=== PATIENT | female | born 1960 | race Caucasian/White ===

== ENCOUNTER 2021-06-26 15:12 | Emergency (ER) | payer BC, SELFPAY ==
--- NOTE | ~2021-06-26 | XR_ITS ---
EXAMINATION: [id number] DATE: 06/26/2021 15:47 INDICATION: Left chest pain. TECHNIQUE: A frontal view of the chest and 2 views of the left ribs on 3 radiographs were obtained. COMPARISON: Chest 2 views 10/10/2011 FINDINGS: There is mild atelectasis at left lung base. No pleural effusion or pneumothorax. The heart size is normal. There is a total left shoulder arthroplasty. IMPRESSION: 1. No rib fracture. 2. Mild atelectasis at left lung base. Reviewed, dictated and finalized at location A.
[2021-06-26 15:28] VITALS: BP 123/66; PULSE 78; RESP 18; TEMP 36.7; O2SAT 99
--- NOTE | 2021-06-26 16:02 | ED.FALL ---
HPI - Fall General Chief Complaint: Fall Stated Complaint: Rib Pain Time Seen by Provider: 06/26/21 15:51 Source: patient and RN notes reviewed Mode of arrival: ambulatory Limitations: no limitations History of Present Illness HPI Narrative: Patient presents today complaining of left rib pain. Yesterday, she caught her toe on a curb and fell onto her left ribs onto a sidewalk. She came in today to have her ribs evaluated. She currently rates her pain 7/10 and has been taking her home Percocet for pain. Pain increases with deep breath and movement. complaint: fall and other (Left rib pain) Related Data Home Medications Medication Instructions Recorded Confirmed amlodipine 10 mg PO DAILY 06/26/21 06/26/21 aripiprazole 5 mg PO DAILY 06/26/21 06/26/21 atorvastatin 20 mg PO DAILY 06/26/21 06/26/21 bupropion HCl 150 mg PO DAILY 06/26/21 06/26/21 cyclobenzaprine 10 mg PO TID PRN 06/26/21 06/26/21 diazepam 5 mg PO DAILY PRN 06/26/21 06/26/21 gabapentin 200 mg PO HS 06/26/21 06/26/21 levothyroxine 100 mcg PO DAILY 06/26/21 06/26/21 meloxicam 15 mg PO BID 06/26/21 06/26/21 metoprolol succinate 100 mg PO DAILY 06/26/21 06/26/21 oxycodone-acetaminophen 1 tablet PO Q4H PRN 06/26/21 06/26/21 zolpidem 10 mg PO HS PRN 06/26/21 06/26/21 Allergies Allergy/AdvReac Type Severity Reaction Status Date / Time ketorolac Allergy Mild Unknown Verified 06/26/21 15:52 Penicillins Allergy Mild Unknown Verified 06/26/21 15:52 prochlorperazine Allergy Mild Unknown Verified 06/26/21 15:52 Review of Systems Review of Systems: CONSTITUTIONAL: Denies body aches, fever, chills, or sweats. EYES: Denies visual changes, redness, or discharge. ENT: Denies rhinorrhea, congestion, sore throat, or otalgia. CARDIOVASCULAR: Denies chest pain, palpitations, or edema. RESPIRATORY: Denies cough or dyspnea. GASTROINTESTINAL: Denies abdominal pain, nausea, vomiting, or diarrhea. GENITOURINARY: Denies dysuria or hematuria. SKIN: Denies rash, itching, or wounds. MUSCULOSKELETAL: Denies back pain, joint pain, or myalgia.+ Left rib pain NEUROLOGIC: Denies headache, numbness, tingling, or weakness. PSYCH: Denies depression or anxiety. [facility] Past Medical History Medical History (Updated 06/26/21 @ 16:11 by Sona Carbajal, AUT[employer]OTIVE [employer], ) Anxiety Depression High cholesterol Hypertension Hypothyroidism Comments At time of signature, I have reviewed and agree with nursing past medical, surgical, social and family history unless otherwise noted. Please see nursing chart for further information. There is no relevant family history pertinent to the presenting complaint Exam Narrative: GENERAL: Well-appearing, well-nourished, and in no acute distress. HEAD: Normocephalic, atraumatic. EYES: EOMI. No redness or drainage. ENT: Mucous membranes pink and moist. NECK: Normal AROM. CHEST: No respiratory distress. Clear to auscultation. Left posterior lateral rib tenderness without crepitus, edema, step-off noted. No ecchymosis noted. HEART: Regular rate and rhythm. No murmur appreciated. Normal peripheral pulses. MUSCULOSKELETAL: No bony tenderness. EXTREMITIES: Normal range of motion. No edema. SKIN: Warm, dry, no rash. Capillary refill normal. Normal skin turgor. NEURO: No focal deficits. Alert and oriented x3. Gait steady. PSYCH: Normal affect. No signs of depression or anxiety. Course Vital Signs Vital signs: Vital Signs Temperature 98.0 F 06/26/21 15:28 Pulse Rate 78 06/26/21 15:28 Respiratory Rate 18 06/26/21 15:28 Blood Pressure 123/66 06/26/21 15:28 Pulse Oximetry 99 06/26/21 15:28 Temperature 98.0 F 06/26/21 15:28 Pulse Rate 78 06/26/21 15:28 Respiratory Rate 18 06/26/21 15:28 Blood Pressure 123/66 06/26/21 15:28 Pulse Oximetry 99 06/26/21 15:28 Reviewed. Pt has been instructed to follow up with her PCP regarding her elevated blood pressure today. MDM - Fall Differential Diagnosis Differential diagno
== END 2021-06-26 16:28 | disposition home or self-care (01) ==
PROVIDERS: Emergency Provider Nurse Practitioner; PCP Family Medicine
DX: S20.212A Contusion of left front wall of thorax, initial encounter (principal); W18.09XA Striking against other object with subsequent fall, initial encounter; E78.00 Pure hypercholesterolemia, unspecified; I10 Essential (primary) hypertension; E03.9 Hypothyroidism, unspecified; F41.9 Anxiety disorder, unspecified; F32.9 Major depressive disorder, single episode, unspecified
CPT/HCPCS: 71101; 99213; G0463

== ENCOUNTER 2023-05-20 10:57 | Outpatient (CLI) | payer BC, SELFPAY ==
--- NOTE | 2023-05-20 11:38 | ECG_ITS ---
Measurements Intervals Rebuck Rate: 79 P: 63 IA: 142 QRS: 16 QRSD: 100 T: 17 QT: 379 QTc: 436 Interpretive Statements SINUS RHYTHM VOLTAGE CRITERIA FOR LVH BORDERLINE ECG NO PREVIOUS ECG AVAILABLE FOR COMPARISON Electronically Signed On 05-20-2023 15:47:29 CDT by Eugenio Womack D.O.
== END 2023-05-20 10:58 | disposition home or self-care (01) ==
PROVIDERS: PCP Family Medicine; Visit Provider Anesthesiology
DX: E78.5 Hyperlipidemia, unspecified (principal); Z01.818 Encounter for other preprocedural examination; R94.31 Abnormal electrocardiogram [ECG] [EKG]
CPT/HCPCS: 93005

== ENCOUNTER 2023-05-26 00:27 | Day surgery (SDC) | payer BC, SELFPAY ==
--- NOTE | 2023-05-17 14:30 | PC.NURSE ---
Report to the Outpatient Waiting Room, entrance under the green pavilion located off [facility], at time _0930__ on datE 05/26/23_. Planned Procedure Time: _1130_. Time changes happen often and if your time is changed the preop area will call you the afternoon before. - You and your visitor will be asked to self-screen and do not enter if you have any COVID symptoms. - A mask is optional within the hospital at this time. Patients may have clear liquids (water, carbonated beverages, clear teas, apple juice) until 3 hours prior to surgery with a maximum of 20 ounces. - No food from midnight until time of surgery - Infants may have breast milk until 4 hours before surgery, infant formula 6 hours prior to surgery. - Children will be allowed to drink immediately following surgery. If applicable, please bring a bottle or sippy cup to assist with drinking. Juice, water, soda, and popsicles are readily available. For infants on formula, please bring formula the day of surgery. Pacifiers are allowed. Take the following medications with a SIP of water the morning of surgery: LEVOTHYROXINE DO NOT STOP ANY OF YOUR OTHER PRESCRIPTION MEDICATIONS PRIOR TO SURGERY ?EXCEPT THE FOLLOWING Medications to discontinue per physician NONE Date to take last dose Please no make-up, nail gambian, hairspray, perfume, deodorant, or body powder the day of surgery. No jewelry (including any body piercings) or valuables the day of surgery, leave them at home. Please take a shower or bath the night before, or the morning of, surgery with an antibacterial soap. Wear comfortable, loose fitting clothing. Children are encouraged to wear pajamas. - Jewelry must be removed prior to entering the operating room. Rings and piercings that are not removed may be cut off. - The hospital will not accept responsibility for valuables. - Please leave all valuables, including medications, at home the day of surgery. If you are going home after surgery, a licensed refuse driver must drive you home. - NO public transportation without another adult if you receive anesthesia. - We recommend that an adult stay with you for 24 hours following discharge. - We also recommend that you do not drive, make important decision, drink alcoholic beverages, or take any drugs that were not prescribed by your health care provider for at least 24 hours after your discharge time. For Pediatric surgeries, we recommend two adults accompany the child home. Follow any additional instructions given to you from your surgeon. If you or anyone in your household have experienced Covid symptoms in the past week, please notify your surgeon or the nurse liaison at the phone number below for possible testing. Telephone instructions given to _PATIENT__and asked if any additional questions and then verbalized understanding. Patient advised to call surgeon office or pre surgery nurse liaison [phone] if any additional questions.
[2023-05-17 14:37] VITALS: BMI 35.4
--- NOTE | 2023-05-25 12:47 | WPDANESEPPF ---
Anes - Initial Pre Proc Eval Procedure: Operation Date: 05/26/23 11:30 Proposed Procedures p Bilateral Myringotomy, Insertion Of T-Tubes - Andrews Roth MD s Bilateral Eustachian Tube Balloon Dilation - Andrews Roth MD Date/Time: 05/25/23 12:47 Surgeon: Andrews Roth MD Pre Op Diagnosis: bilateral chronic OM Patient Data Age: 63 Gender: F Height: 1.75 m Weight: 109 kg Allergies Allergy/AdvReac Type Severity Reaction Status Date / Time ketorolac Allergy Mild Hives Verified 05/26/23 09:40 Penicillins Allergy Mild Hives Verified 05/26/23 09:40 Home Medications Medication Instructions Recorded Confirmed Type aripiprazole 5 mg tablet 5 mg PO HS 06/26/21 05/26/23 History atorvastatin 20 mg tablet 20 mg PO HS 06/26/21 05/26/23 History diazepam 5 mg tablet 5 mg PO DAILY PRN Anxiety 06/26/21 05/26/23 History levothyroxine 100 mcg tablet 100 mcg PO DAILY 06/26/21 05/26/23 History oxycodone-acetaminophen 7.5 mg-325 1 tablet PO Q5H PRN Pain 06/26/21 05/26/23 History mg tablet amlodipine 5 mg tablet 5 mg PO HS 05/02/23 05/26/23 History bupropion HCl 300 mg 24 hr tablet, 300 mg PO HS 05/02/23 05/26/23 History extended release zolpidem 6.25 mg tablet,extended 12.5 mg PO HS 05/17/23 05/26/23 History release,multiphase Patient hx anesthesia problems: none Family hx anesthesia problems: none Results Review: All pre-operative results and documents have been reviewed as part of the pre-operative evaluation. [facility] Past Medical History Medical History (Updated 05/25/23 @ 12:48 by Mariano Petit MD) Anxiety Depression High cholesterol Hypertension Hypothyroidism Obesity Family History Family History Grandparent Alcoholism Breast cancer Sibling Alcoholism Depression Mother Breast cancer Hypertension Thyroid disorder Father Hypertension Heart disease Social History Social History Smoking status: Never smoker Alcohol intake: former Alcohol use details: LAST USE 10 YEARS AGO Lack of Transportation: No Lack of Food: Never True Current Housing: I Have Housing Concerned About Future Housing: No Difficulty Paying Gas/Electric Bills: No Difficulty Paying for Meds: No Currently Unemployed: No Education: Master's Degree or Higher Difficulty w/ Childcare or Family Care: No Living arrangements: with family Jony - Nan Final PreProcedure Day of Procedure 05/25/23 12:47 Patient weight: obese Heart: regular rate and rhythm Lungs: clear to auscultation and normal air movement Airway: Mallampati scale class II Neurological: alert and oriented Last oral intake: >/= 8 hours ASA classification: III Emergent: no Anesthetic plan: proceed Anesthesia type and monitoring: general GIVS and LMA Results Review: All pre-operative results and documents have been reviewed as part of the pre-operative evaluation. Informed Consent: The patient's anesthetic plan and its attendant risks and benefits were discussed with the patient/family/POA. Questions were solicited and answers provided to the satisfaction of the patient/family/POA.
--- NOTE | 2023-05-25 17:45 | P.HP_ITS ---
H&P: HPI History of Present Illness Date/Time: 05/25/23 17:45 Chief Complaint: recurrent otitis media hearing loss Narrative: planned procedure Review of Systems Review of Systems: All systems reviewed & are unremarkable except as noted in HPI and below [facility] Past Medical History Medical History (Updated 05/25/23 @ 12:48 by Mariano Petit MD) Anxiety Depression High cholesterol Hypertension Hypothyroidism Obesity Family History Family History Grandparent Alcoholism Breast cancer Sibling Alcoholism Depression Mother Breast cancer Hypertension Thyroid disorder Father Hypertension Heart disease Social History Social History Smoking status: Never smoker Alcohol intake: former Alcohol use details: LAST USE 10 YEARS AGO Lack of Transportation: No Lack of Food: Never True Current Housing: I Have Housing Concerned About Future Housing: No Difficulty Paying Gas/Electric Bills: No Difficulty Paying for Meds: No Currently Unemployed: No Education: Master's Degree or Higher Difficulty w/ Childcare or Family Care: No Living arrangements: with family Meds Home Medications and Allergies Home Medications Medication Instructions Recorded Confirmed Type aripiprazole 5 mg tablet 5 mg PO HS 06/26/21 05/17/23 History atorvastatin 20 mg tablet 20 mg PO HS 06/26/21 05/17/23 History diazepam 5 mg tablet 5 mg PO DAILY PRN Anxiety 06/26/21 05/17/23 History levothyroxine 100 mcg tablet 100 mcg PO DAILY 06/26/21 05/17/23 History oxycodone-acetaminophen 7.5 mg-325 1 tablet PO Q5H PRN Pain 06/26/21 05/17/23 History mg tablet amlodipine 5 mg tablet 5 mg PO HS 05/02/23 05/17/23 History bupropion HCl 300 mg 24 hr tablet, 300 mg PO HS 05/02/23 05/17/23 History extended release zolpidem 6.25 mg tablet,extended 6.25 mg PO HS 05/17/23 05/17/23 History release,multiphase Allergies Allergy/AdvReac Type Severity Reaction Status Date / Time ketorolac Allergy Mild Hives Verified 05/17/23 14:36 Penicillins Allergy Mild Hives Verified 05/17/23 14:36 Exam Narrative: fluid bilaterally Assessment and Plan Assessment and plan (1) Chronic otitis media with effusion, bilateral: Code(s): H65.493 - Other chronic nonsuppurative otitis media, bilateral Status: Acute Assessment and Plan: plan 0 bilateral myringotomy with T-tube insertion. Risks were discussed including bleeding infection damage to surrounding structures damage to any structure above the clavicles by myself. Damage to any structure of LMA placed by Anesthesia. Cholesteatoma formation persistent perforation need for replacement of tubes need for repeat tubes facial nerve paralysis total deafness failure to resolve symptoms. Patient voiced understanding of these risks and agreed.
[2023-05-26] VITALS (8 sets, daily range): BP systolic 110–155; BP diastolic 57–94; PULSE 67–77; RESP 12–20; TEMP 36.3–36.4; O2SAT 94–98
--- NOTE | 2023-05-26 07:36 | WPDHPUPDATE1 ---
History and Physical Update Update Date/Time: 05/26/23 07:36 History and Physical has been reviewed, including an updated exam of the patient. There are NO changes in the patient's condition. Risks, benefits, and alternatives have been discussed and questions answered. Patient agrees to proceed with procedure.
[2023-05-26] MEDS: LACTATED RINGERS 1,000 ML 30 ML IV CONT (09:56)
--- NOTE | 2023-05-26 09:58 | SUR.PREOP ---
pt informed delay in procedure
--- NOTE | 2023-05-26 12:45 | W.PM.PROC2 ---
Procedure Note - Detailed Date of Procedure 05/26/23 Pre-op Diagnosis bilateral chronic OM Post-op Diagnosis Same Procedure Performed Bilateral myringotomy T-tube insertion Surgeon Andrews Roth MD Anesthesia General Indications see above Findings serous effusion bilaterally Description of Procedure patient identified consent verified preop. Patient broughtOperating. Time-out performed. General anesthesia induced mask ventilation maintained. Patient prepped draped positioned procedure confirm 2nd time-out performed. [place] microscope utilized right-sided viewed myringotomy made fluid suctioned out 5 Faroese suction. T-Tube placed drops placed exact same procedure performed on the left side with the exact same findings. Blood loss 0 cc. No complications I performed all dictated portions the procedure care the patient given Anesthesiology patient taken to PACU. Drains No Packing No Pathology None sent Complications No immediate complications Condition Stable Disposition PACU [facility] Billing Surgery - Charge Forward: Surgery Billing
[2023-05-26] MEDS: fentaNYL CITRATE INJ (*CRX) 100 MCG/2 ML VIAL 25 MCG IV PUSH ×6 (12:57→13:24)
[2023-05-26] MEDS: oxyCODONE HCL (*CRX) 5 MG TAB IR PO (13:42)
== END 2023-05-26 14:36 | disposition home or self-care (01) ==
PROVIDERS: PCP Family Medicine; Visit Provider Otolaryngology
PROC: (CPT 69436; principal; 2023-05-26 11:30)
DX: H65.493 Other chronic nonsuppurative otitis media, bilateral (principal); I10 Essential (primary) hypertension; E78.00 Pure hypercholesterolemia, unspecified; E03.9 Hypothyroidism, unspecified; F41.9 Anxiety disorder, unspecified; F32.A Depression, unspecified; E66.9 Obesity, unspecified; Z68.35 Body mass index [BMI] 35.0-35.9, adult
CPT/HCPCS: 69436; A9270; J2704; J3010; J7120

== ENCOUNTER 2024-05-07 00:30 | Day surgery (SDC) | payer BC, SELFPAY ==
[2024-04-24 10:23] VITALS: BMI 29.2
[2024-05-07 12:20] VITALS: BP 142/85; PULSE 75; RESP 18; TEMP 36.2; O2SAT 100; BMI 30.7
[2024-05-07] MEDS: LACTATED RINGERS 1,000 ML 150 ML IV CONT (12:47)
--- NOTE | 2024-05-07 13:27 | SUR.PREOP ---
1300 Patient and family updated to procedure delay- denies any needs at this time.
--- NOTE | 2024-05-07 14:04 | WPDANESEPPF ---
Anes - Initial Pre Proc Eval Procedure: Operation Date: 05/07/24 13:30 Proposed Procedures p Esophagogastroduodenoscopy - Luis Felipe Arreola MD Date/Time: 05/07/24 14:04 Surgeon: Luis Felipe Arreola MD Pre Op Diagnosis: GERD without esophagitis, Dyskinesia of esophagus Patient Data Age: 64 Gender: F Height: 1.75 m Weight: 94.4 kg Last Vital Signs Temp 36.2 C L 05/07/24 12:20 Pulse 75 05/07/24 12:20 Resp 18 05/07/24 12:20 BP 142/85 H 05/07/24 12:20 Pulse Ox 100 05/07/24 12:20 O2 Del Method Room Air 05/07/24 12:20 Allergies Allergy/AdvReac Type Severity Reaction Status Date / Time ketorolac Allergy Mild Hives Verified 05/07/24 12:28 Penicillins Allergy Mild Hives Verified 05/07/24 12:28 Home Medications Medication Instructions Recorded Confirmed Type aripiprazole 5 mg tablet 5 mg PO HS 06/26/21 05/07/24 History atorvastatin 20 mg tablet 20 mg PO HS 06/26/21 05/07/24 History diazepam 5 mg tablet 5 mg PO DAILY PRN Anxiety 06/26/21 05/07/24 History levothyroxine 100 mcg tablet 100 mcg PO DAILY 06/26/21 05/07/24 History amlodipine 5 mg tablet 5 mg PO HS 05/02/23 05/07/24 History omeprazole 40 mg capsule,delayed 40 mg PO DAILY #30 caps 08/22/23 05/07/24 Rx release gabapentin 400 mg tablet 400 mg PO TID 04/24/24 05/07/24 History oxycodone-acetaminophen 7.5 mg-325 1 tablet PO QID PRN Pain 04/24/24 05/07/24 History mg tablet semaglutide (weight loss) 2.4 2.4 mg subcut WEEKLY 04/24/24 05/07/24 History mg/0.75 mL subcutaneous pen injector (Wegovy) Patient hx anesthesia problems: none Family hx anesthesia problems: none Results Review: All pre-operative results and documents have been reviewed as part of the pre-operative evaluation. [facility] Past Medical History Medical History Anxiety Depression High cholesterol Hypertension Hypothyroidism Obesity Surgical History Surgical History History of total shoulder replacement Family History Family History Grandparent Alcoholism Breast cancer Sibling Alcoholism Depression Mother Breast cancer Hypertension Thyroid disorder Father Hypertension Heart disease Social History Social History Smoking status: Never smoker Alcohol intake: former Alcohol use details: LAST USE 10 YEARS AGO Lack of Transportation: No Lack of Food: Never True Current Housing: I Have Housing Concerned About Future Housing: No Difficulty Paying Gas/Electric Bills: No Difficulty Paying for Meds: No Currently Unemployed: No Education: Bachelor's Degree Difficulty w/ Childcare or Family Care: No Living arrangements: with family Spiritual care concerns: No Anes - Eval Final PreProcedure Day of Procedure 05/07/24 14:04 Patient weight: obese Heart: regular rate and rhythm Lungs: clear to auscultation Airway: Mallampati scale class III Neurological: alert and oriented Last oral intake: >/= 8 hours ASA classification: II Emergent: no Anesthetic plan: proceed Anesthesia type and monitoring: general GIVS and standard monitoring Results Review: All pre-operative results and documents have been reviewed as part of the pre-operative evaluation. Informed Consent: The patient's anesthetic plan and its attendant risks and benefits were discussed with the patient/family/POA. Questions were solicited and answers provided to the satisfaction of the patient/family/POA.
--- NOTE | 2024-05-07 14:53 | PM.HPGS ---
History of Present Illness History of Present Illness Consent: Risks, benefits, and alternatives have been discussed and questions answered. Patient agrees to proceed with procedure. Chief complaint: GERD without esophagitis, Dyskinesia of esophagus Narrative: Gricelda Lynn is a 64 year old female here for first egd, had throat pain ever since she had general anesthesia with intubation for her shoulder replacement and this has been over 8 months in duration. She has been seeing ENT Review of Systems Review of Systems: All systems reviewed & are unremarkable except as noted in HPI and below [facility] Past Medical History Medical History (Updated 05/07/24 @ 14:53 by Luis Felipe Arreola MD) Anxiety Depression High cholesterol Hypertension Hypothyroidism Obesity Sore throat Surgical History Surgical History History of total shoulder replacement Family History Family History Grandparent Alcoholism Breast cancer Sibling Alcoholism Depression Mother Breast cancer Hypertension Thyroid disorder Father Hypertension Heart disease Social History Social History Smoking status: Never smoker Alcohol intake: former Alcohol use details: LAST USE 10 YEARS AGO Lack of Transportation: No Lack of Food: Never True Current Housing: I Have Housing Concerned About Future Housing: No Difficulty Paying Gas/Electric Bills: No Difficulty Paying for Meds: No Currently Unemployed: No Education: Bachelor's Degree Difficulty w/ Childcare or Family Care: No Living arrangements: with family Spiritual care concerns: No Meds Home Medications and Allergies Home Medications Medication Instructions Recorded Confirmed Type aripiprazole 5 mg tablet 5 mg PO HS 06/26/21 05/07/24 History atorvastatin 20 mg tablet 20 mg PO HS 06/26/21 05/07/24 History diazepam 5 mg tablet 5 mg PO DAILY PRN Anxiety 06/26/21 05/07/24 History levothyroxine 100 mcg tablet 100 mcg PO DAILY 06/26/21 05/07/24 History amlodipine 5 mg tablet 5 mg PO HS 05/02/23 05/07/24 History omeprazole 40 mg capsule,delayed 40 mg PO DAILY #30 caps 08/22/23 05/07/24 Rx release gabapentin 400 mg tablet 400 mg PO TID 04/24/24 05/07/24 History oxycodone-acetaminophen 7.5 mg-325 1 tablet PO QID PRN Pain 04/24/24 05/07/24 History mg tablet semaglutide (weight loss) 2.4 2.4 mg subcut WEEKLY 04/24/24 05/07/24 History mg/0.75 mL subcutaneous pen injector (Wegovy) Allergies Allergy/AdvReac Type Severity Reaction Status Date / Time ketorolac Allergy Mild Hives Verified 05/07/24 12:28 Penicillins Allergy Mild Hives Verified 05/07/24 12:28 Vital Signs Vital Signs - 24 hr 05/07/24 12:20 Temperature 97.1 F L Pulse Rate 75 Respiratory Rate 18 Blood Pressure 142/85 H Pulse Oximetry 100 Oxygen Delivery Room Air Exam Const: General: comfortable and no acute distress HENMT: Face/Nose/Sinus: Normal nares present Eyes: General: appearance normal, both eyes and all related structures Neck: Neck: no JVD Resp: Auscultation: clear to auscultation bilaterally Cardio: Rate: regular rate Rhythm: regular rhythm GI: Inspection: non-distended GI Palp: Yes Soft to palpation Skin: General skin exam: normal color Neuro: General: gait normal Speech: normal speech Extrem: General: normal to inspection Psych: Mental Status: mental status grossly normal Assessment and Plan Assessment and plan (1) Laryngopharyngeal reflux: Code(s): K21.9 - Gastro-esophageal reflux disease without esophagitis Status: Acute Assessment and Plan: egd to assess (2) Sore throat: Code(s): J02.9 - Acute pharyngitis, unspecified Status: Acute
[2024-05-07 15:10] VITALS: BP 113/64; PULSE 67; RESP 16; O2SAT 98
[2024-05-07 15:20] VITALS: BP 126/74; PULSE 68; RESP 18; O2SAT 100
[2024-05-07 15:30] VITALS: BP 133/76; PULSE 77; RESP 18; O2SAT 100
== END 2024-05-07 15:41 | disposition home or self-care (01) ==
PROVIDERS: PCP Family Medicine; Referring Provider Otolaryngology; Visit Provider Internal Medicine Gastroenterology
PROC: 0DJ08ZZ Inspection of Upper Intestinal Tract, Via Natural or Artificial Opening Endoscopic (ICD-10-PCS; CPT 43235; principal; 2024-05-07 13:30)
DX: K21.00 Gastro-esophageal reflux disease with esophagitis, without bleeding (principal); K29.70 Gastritis, unspecified, without bleeding; I10 Essential (primary) hypertension; E78.00 Pure hypercholesterolemia, unspecified; F41.9 Anxiety disorder, unspecified; F32.A Depression, unspecified; E03.9 Hypothyroidism, unspecified; E66.9 Obesity, unspecified; Z68.30 Body mass index [BMI] 30.0-30.9, adult
CPT/HCPCS: 43239; 88305; J2704; J7120

== ENCOUNTER 2024-06-13 13:19 | Outpatient (CLI) | payer BC, SELFPAY ==
--- NOTE | ~2024-06-13 | CT_ITS ---
EXAMINATION: CT soft tissue neck w con DATE: 06/13/2024 14:08 INDICATION: Chronic sore throat. Massive piriform sinus. TECHNIQUE: Computed tomography (CT) of the neck was performed with 75 mL Omnipaque-350 intravenous co ntrast. The dose-length product was 420.93 mGy-cm. COMPARISON: None FINDINGS: 7 mm hypodense right thyroid nodule which requires no additional evaluation at this time. The subma ndibular and parotid glands are symmetric. There is no cervical lymphadenopathy. There are no mass es identified. The superior mediastinum is unremarkable. The airway is unremarkable. Paraphary ngeal and pre-glottic fat planes are preserved. Normally enhancing neck vessels. The orbits are un remarkable. Small retention cyst/polyp in the left maxillary sinus. Bilateral mastoid effusions. Pa rtial opacification of the right middle ear compartment. Clear lung apices. There is cervical spond ylosis. IMPRESSION: Right middle ear and mastoid opacification, correlate for findings of otomastoiditis. Left mastoid effusion. Small inferior left maxillary retention cyst/polyp. Reviewed, dictated and finalized at location K. IMPRESSION: Right middle ear and mastoid opacification, correlate for findings of otomastoi ditis. Left mastoid effusion. Small inferior left maxillary retention cyst/polyp.
[2024-06-13 14:00] LABS: Estimated Glomerular Filt Rate 56
== END 2024-06-13 13:20 ==
LOC: MICIMG 13:20
PROVIDERS: PCP Family Medicine; Visit Provider Otolaryngology
DX: J34.89 Other specified disorders of nose and nasal sinuses (principal)
CPT/HCPCS: 70491; Q9967